=== PATIENT | male | born 1970 ===

== ENCOUNTER 2016-10-22 16:24 | Emergency (ER) | payer OTHER ==
[2016-10-22 16:31] VITALS: BMI 29.0
[2016-10-22 16:35] VITALS: TEMP 98.8
--- NOTE | 2016-10-22 17:07 | ED PDOC ---
Arrival/HPI - General Chief Complaint: High Blood Pressure Time Seen by Provider: 10/22/16 16:44 Historian: Patient - History of Present Illness Narrative History of Present Illness (Text): 10/22/16 17:20 46-year-old male with a history of hypertension presents today with a 2 day history of headache. Patient states the past 2 days he has not taken his blood pressure medications. Patient states 2 days ago he was sitting on the couch watching TV and he developed a throbbing headache localized to the top of the head. Patient did not take any medications for pain at home. Patient states the headache has been throbbing and intermittent. He currently rates the headache has an 8 out of 10. Patient states he has had history of headache in the past. Patient denies blurred vision. Denies dizziness or weakness. He denies any focal weakness. He denies chest pain or shortness of breath. No abdominal pain. Patient was seen by his primary care physician today and sent in to the emergency room for evaluation of his elevated blood pressure. Time/Duration: Other (2days) Symptom Course: Intermittent Quality: Throbbing Severity Level: 8 Past Medical History - Provider Review Nursing Documentation Reviewed: Yes - Travel History Have you recently traveled outside [place] w/in the past 3 mons?: No - Infectious Disease Hx of Infectious Diseases: None - Tetanus Immunization Tetanus Immunization: Unknown - Cardiac Hx Cardiac Disorders: Yes Hx Hypertension: Yes - Pulmonary Hx Respiratory Disorders: No - Neurological Hx Neurological Disorder: No - HEENT Hx HEENT Disorder: No - Renal Hx Renal Disorder: No - Endocrine/Metabolic Hx Endocrine Disorders: No - Hematological/Oncological Hx Blood Disorders: No - Integumentary Hx Dermatological Disorder: No - Musculoskeletal/Rheumatological Hx Musculoskeletal Disorders: No - Gastrointestinal Hx Gastrointestinal Disorders: No - Genitourinary/Gynecological Hx Genitourinary Disorders: No - Psychiatric Hx Psychophysiologic Disorder: No Hx Substance Use: No - Surgical History Hx Orthopedic Surgery: Yes (BACK SX) - Anesthesia Hx Anesthesia: Yes Hx Anesthesia Reactions: No - Suicidal Assessment Feels Threatened In Home Enviroment: No Family/Social History - Physician Review Nursing Documentation Reviewed: Yes Family/Social History: Unknown Family HX Smoking Status: Current Some Days Smoker Hx Alcohol Use: Yes Frequency of alcohol use: Socially Hx Substance Use: No Hx Substance Use Treatment: No Allergies/Home Meds Allergies/Adverse Reactions: Allergies No Known Allergies Allergy (Verified 10/22/16 16:31) Home Medications: Home Meds Medication Instructions Recorded Confirmed Enalapril/Hydrochlorothiazide 1 each PO DAILY 10/22/16 10/22/16 [Enalapril-Hctz 5-12.5 mg Tab] Review of Systems - Review of Systems Constitutional: absent: Fatigue, Fevers Eyes: absent: Vision Changes, Photophobia, Eye Pain ENT: absent: Sinus Congestion Respiratory: absent: SOB, Cough Cardiovascular: absent: Chest Pain, Palpitations Gastrointestinal: absent: Abdominal Pain, Nausea, Vomiting Musculoskeletal: absent: Arthralgias, Back Pain, Neck Pain Neurological: Headache. absent: Dizziness, Focal Weakness, Gait Changes, Speech Changes, Disequilibrium Psychiatric: absent: Anxiety, Depression Physical Exam Vital Signs Reviewed: Yes Vital Signs Temp Pulse Resp BP Pulse Ox 10/22/16 20:06 60 18 140/92 H 99 10/22/16 18:48 63 18 144/85 97 10/22/16 18:08 62 18 157/110 H 96 10/22/16 17:20 189/119 H 10/22/16 16:33 98.8 F 70 19 236/148 H 99 Temperature: Afebrile Blood Pressure: Hypertensive (bp 189/119) Pulse: Regular Respiratory Rate: Normal Appearance: Positive for: Well-Appearing, Non-Toxic, Comfortable Pain Distress: None Mental Status: Positive for: Alert and Oriented X 3 - Systems Exam Head: Present: Atraumatic. No: Tenderness Pupils: Present: PERRL Extroacular Muscles: Present: EOMI Conjunctiva: Present: Normal Ears: Present: Normal Mouth: Present: Moist Mucous Membranes Neck: Present: Normal Range of Motion, Trachea Midline. No: Meningeal Signs, MIDLINE TENDERNESS, Paraspinal Tenderness Respiratory/Chest: Present: Clear to Auscultation, Good Air Exchange. No: Respiratory Distress, Accessory Muscle Use Cardiovascular: Present: Regular Rate and Rhythm, Normal S1, S2. No: Murmurs Abdomen: No: Tenderness, Distention Back: Present: Normal Inspection Upper Extremity: Present: Normal ROM Lower Extremity: Present: Normal Inspection. No: Edema Neurological: Present: GCS=15, Speech Normal Skin: Present: Warm, Dry, Normal Color. No: Rashes Psychiatric: Present: Alert, Oriented x 3 Medical Decision Making ED Course and Treatment: 10/22/16 17:22 46yr old male with 2 day hx of headache; sent in by PMD. Patient's blood pressure is 189/119 elevated bp in er; has hx of htn did not take medications for 2 days. pt non toxic well appearing; no distress. case discussed with attending of record. 0.1mg of clonidine given by mouth cbc: wnl cmp WNl trop: 0.03 ekg; sinus rhythm at 62 bpm normal axis normal intervals no ST elevations chest x-ray: No infiltrate and no effusion CT of the head: FINDINGS: HEMORRHAGE: No intracranial hemorrhage. BRAIN: No mass effect or edema. Intracranial atherosclerotic calcifications. Mild scattered white matter hypodensities, which are nonspecific, but often seen with chronic microvascular ischemic disease. Please note that MRI with diffusion imaging is more sensitive in the detection of acute ischemic event. VENTRICLES: No hydrocephalus. Cavum septum pellucidum, anatomic variant. CALVARIUM: Unremarkable. PARANASAL SINUSES: Scattered mucosal thickening of the ethmoid air cells. Remainder the visualized paranasal sinuses appear clear. No air-fluid levels. MASTOID AIR CELLS: Opacification/fluid involving bilateral mastoid air cells, right greater than left ; correlate clinically for mastoiditis. OTHER FINDINGS: Opacification bilateral external auditory canals, likely cerumen. IMPRESSION: Mild scattered nonspecific white matter changes. Opacification/fluid involving bilateral mastoid air cells, right greater than left ; correlate clinically for mastoiditis. Scattered mucosal thickening of the ethmoid air cells. 10/22/16 20:37 after clonidine pts headache has completely resolved; and blood pressure has improved greatly; i discussed all results in depth with patient; pt denies any ear pain. denies fever/chills. there is NO mastoid tenderness or erythema. Discussed the CAT scan findings of bilateral mastoid air cell opacification and fluid. As there is no mastoid tenderness or erythema and the patient denies any ear pain. I will discharge the patient home with by mouth antibiotics and have the patient follow up with the ENT specialist. Patient states he will not get his blood pressure medications delivered to him for the next 5 days. I will give the patient a prescription of his hydrochlorothiazide and his atenolol and his atorvastatin. I've advised the patient to follow up with a primary care physician tomorrow for which he states that he will. I've advised immediately return if symptoms worsen persist or if new concerning symptoms develop All information was translated to the patient using a pediatric assistant electronic heat seal operator #[id number] Patient verbalizes understanding of discharge instructions and need for immediate followup. all aspects of this case were discussed the attending of record. impression; headache, HTN, take your blood pressure medications as prescribed increase fluids amoxicillin 3 times daily x 10 days follow up with the primary care physician tomorrow follow up with the ENT specialist within the next 2 days. Return immediately if symptoms worsen,persist or if new symptoms develop. - Lab Interpretations Lab Results: 10/22/16 16:45 10/22/16 16:45 Lab Results 10/22/16 16:45: WBC 8.3, RBC 4.48, Hgb 14.4, Hct 42.2, MCV 94.2, MCH 32.1, MCHC 34.1, RDW 12.9, Plt Count 271, MPV 10.8, Gran % 61.9, Lymph % (Auto) 27.9, [place] % (Auto) 4.4, Eos % (Auto) 5.4 H, Baso % (Auto) 0.4, Gran # 5.15, Lymph # 2.3, [place] # 0.4, Eos # 0.5, Baso # 0.03 10/22/16 16:45: Sodium 142, Potassium 4.0, Chloride 103, Carbon Dioxide 28, Anion Gap 15, BUN 12, Creatinine 0.9, Est GFR ( Amer) > 60, Est GFR (Non- Af Amer) > 60, Random Glucose 89, Calcium 9.6, Total Bilirubin 0.5, AST 25, ALT 43, Alkaline Phosphatase 72, Lactate Dehydrogenase 513, Total Creatine Kinase 156, Troponin I 0.03, Total Protein 7.9, Albumin 4.5, Globulin 3.3, Albumin/ Globulin Ratio 1.4 - RAD Interpretation Radiology Orders: 10/22/16 17:06 HEAD W/O CONTRAST [CT] Stat CHEST PORTABLE [RAD] Stat - Medication Orders Current Medication Orders: Discontinued Medications Acetaminophen (Tylenol 325mg Tab) 975 mg PO STAT STA Stop: 10/22/16 20:21 Last Admin: 10/22/16 20:30 Dose: 975 mg Clonidine HCl (Catapres) 0.1 mg PO STAT STA Stop: 10/22/16 17:11 Last Admin: 10/22/16 17:20 Dose: 0.1 mg Disposition/Present on Arrival - Present on Arrival Any Indicators Present on Arrival: No History of DVT/PE: No History of Uncontrolled Diabetes: No Urinary Catheter: No History of Decub. Ulcer: No History Surgical Site Infection Following: None - Disposition Have Diagnosis and Disposition been Completed?: Yes Diagnosis: Headache, Hypertension Disposition: HOME/ ROUTINE Disposition Time: 20:46 Patient Plan: Discharge Condition: GOOD Discharge Instructions (ExitCare): Hypertension (ED) Print Language: SAMI Additional Instructions: take your blood pressure medications as prescribed increase fluids amoxicillin 3 times daily x 10 days follow up with the primary care physician tomorrow follow up with the ENT specialist within the next 2 days. Return immediately if symptoms worsen,persist or if new symptoms develop Prescriptions: Amoxicillin 500 mg PO TID #30 tab Atenolol [Tenormin] 25 mg PO DAILY #5 Atorvastatin [Lipitor] 20 mg PO DAILY #5 hydroCHLOROthiazide [Hydrodiuril] 25 mg PO DAILY #5 tab Referrals: Daniel John [Primary Care Provider] - Follow up with primary Sage Mckeon MD [Staff Provider] - Follow up with primary Stanley Cyr DO [Staff Provider] - Follow up with primary Forms: WORK NOTE
[2016-10-22 17:16] LABS: ADD MANUAL DIFF? NO
[2016-10-22 17:30] LABS: BASO # 0.03 K/mm3 (0.0-2.0); BASO % 0.4 % (0.0-3.0); EOS # 0.5 (0.0-0.7); EOS % 5.4 % (1.5-5.0); GRAN # 5.15 (1.4-6.5); GRAN % 61.9 % (50.0-68.0); HEMATOCRIT 42.2 % (42.0-52.0); LYMPH # 2.3 (1.2-3.4); LYMPH % 27.9 % (22.0-35.0); MEAN CELL VOLUME 94.2 fL (80.0-105.0); MEAN CORPUSCULAR HEMOGLOBIN 32.1 pg (25.0-35.0); MEAN CORPUSCULAR HGB CONC 34.1 g/dl (31.0-37.0); MEAN PLATELET VOLUME 10.8 fl (7.0-11.0); MONO # 0.4 (0.1-0.6); MONO % 4.4 % (1.0-6.0); PLATELET COUNT 271 10^3/uL (120.0-450.0); RED CELL DISTRIBUTION WIDTH 12.9 % (11.5-14.5); WHITE BLOOD COUNT 8.3 10^3/ul (4.5-11.0)
--- NOTE | 2016-10-22 17:41 | CT ---
PROCEDURE: CT HEAD WITHOUT CONTRAST. HISTORY: headache COMPARISON: None available. TECHNIQUE: Axial computed tomography images were obtained through the head/brain without intravenous contrast. Radiation dose: Total exam DLP = 894.17 mGy-cm. This CT exam was performed using one or more of the following dose reduction techniques: Automated exposure control, adjustment of the mA and/or kV according to patient size, and/or use of iterative reconstruction technique. FINDINGS: HEMORRHAGE: No intracranial hemorrhage. BRAIN: No mass effect or edema. Intracranial atherosclerotic calcifications. Mild scattered white matter hypodensities, which are nonspecific, but often seen with chronic microvascular ischemic disease. Please note that MRI with diffusion imaging is more sensitive in the detection of acute ischemic event. VENTRICLES: No hydrocephalus. Cavum septum pellucidum, anatomic variant. CALVARIUM: Unremarkable. PARANASAL SINUSES: Scattered mucosal thickening of the ethmoid air cells. Remainder the visualized paranasal sinuses appear clear. No air-fluid levels. MASTOID AIR CELLS: Opacification/fluid involving bilateral mastoid air cells, right greater than left ; correlate clinically for mastoiditis. OTHER FINDINGS: Opacification bilateral external auditory canals, likely cerumen. IMPRESSION: Mild scattered nonspecific white matter changes. Opacification/fluid involving bilateral mastoid air cells, right greater than left ; correlate clinically for mastoiditis. Scattered mucosal thickening of the ethmoid air cells.
[2016-10-22 17:42] LABS: ALB/GLOB RATIO 1.4 (1.1-1.8); ALKALINE PHOSPHATASE 72 U/L (38-133); ALT/SGPT 43 U/L (7-56); AST/SGOT 25 U/L (15-59); BILIRUBIN,TOTAL 0.5 mg/dL (0.2-1.3); BLOOD UREA NITROGEN 12 mg/dL (7-21); CALCIUM 9.6 mg/dL (8.4-10.5); CARBON DIOXIDE 28 mmol/L (21-33); CHLORIDE 103 mmol/L (98-107); GFR AFRICAN-AMERICAN > 60; GLUCOSE,RANDOM 89 mg/dL (70-110); SODIUM 142 mmol/L (132-148); TOTAL PROTEIN 7.9 g/dL (5.8-8.3)
[2016-10-22 17:51] LABS: TROPONIN I 0.03 ng/mL
[2016-10-22 18:08] VITALS: RESP 18
--- NOTE | 2016-10-22 18:44 | RAD ---
HISTORY: headache/htn COMPARISON: No prior. FINDINGS: LUNGS: No active pulmonary disease. PLEURA: No significant pleural effusion identified, no pneumothorax apparent. CARDIOVASCULAR: Heart appears upper limits of normal/ borderline enlarged OSSEOUS STRUCTURES: No significant abnormalities. VISUALIZED UPPER ABDOMEN: Normal. OTHER FINDINGS: None. IMPRESSION: No focal consolidation
[2016-10-22 20:07] VITALS: BP 140/92; PULSE 60; O2SAT 99
--- NOTE | 2016-10-23 23:00 | CARD ---
APPROVED REPORT EKG Measurement Heart [id number] <Conclusion> Normal sinus rhythm Normal ECG
== END 2016-10-22 21:00 | disposition home or self-care (01) ==
LOC: ED 16:24
DX: I10 Essential (primary) hypertension (principal); R51 Headache

== ENCOUNTER 2018-03-24 13:59 | Emergency (ER) | payer OTHER ==
--- NOTE | 2018-03-24 14:15 | ED PDOC ---
Arrival/HPI - General Time Seen by Provider: 03/24/18 14:14 Historian: Patient - History of Present Illness Narrative History of Present Illness (Text): 03/24/18 14:15 48 y/o male, pmh including htn/hld, nkda, c/o rt. shoulder pain with stiffness x 2 weeks. 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 shoulder movement, no numbness or tingling, no leg or extremity swelling, no deformity, no palpitation, no rash, no night sweat, no dizziness, no other medical or psychological complaints. Past Medical History - Provider Review Nursing Documentation Reviewed: Yes - Infectious Disease Hx of Infectious Diseases: None - Tetanus Immunization Tetanus Immunization: Unknown - Cardiac Hx Cardiac Disorders: Yes Hx Hypertension: Yes - Pulmonary Hx Respiratory Disorders: No - Neurological Hx Neurological Disorder: No - HEENT Hx HEENT Disorder: No - Renal Hx Renal Disorder: No - Endocrine/Metabolic Hx Endocrine Disorders: No - Hematological/Oncological Hx Blood Disorders: No - Integumentary Hx Dermatological Disorder: No - Musculoskeletal/Rheumatological Hx Musculoskeletal Disorders: No - Gastrointestinal Hx Gastrointestinal Disorders: No - Genitourinary/Gynecological Hx Genitourinary Disorders: No - Psychiatric Hx Psychophysiologic Disorder: No Hx Substance Use: No - Surgical History Hx Orthopedic Surgery: Yes (BACK SX) - Anesthesia Hx Anesthesia: Yes Hx Anesthesia Reactions: No - Suicidal Assessment Feels Threatened In Home Enviroment: No Family/Social History - Physician Review Nursing Documentation Reviewed: Yes Family/Social History: Unknown Family HX Smoking Status: Current Some Days Smoker Hx Alcohol Use: Yes Hx Substance Use: No Hx Substance Use Treatment: No Allergies/Home Meds Allergies/Adverse Reactions: Allergies No Known Allergies Allergy (Verified 10/22/16 16:31) Home Medications: Home Meds Medication Instructions Recorded Confirmed Enalapril/Hydrochlorothiazide 1 each PO DAILY 10/22/16 10/22/16 [Enalapril-Hctz 5-12.5 mg Tab] Review of Systems - Review of Systems Constitutional: absent: Fatigue, Fevers Eyes: absent: Vision Changes ENT: absent: Hearing Changes Respiratory: absent: SOB, Cough Cardiovascular: absent: Chest Pain Gastrointestinal: absent: Abdominal Pain, Nausea, Vomiting Musculoskeletal: Arthralgias, Joint Swelling. absent: Back Pain, Neck Pain, Myalgias Skin: absent: Rash, Pruritis, Skin Lesions Neurological: absent: Headache, Dizziness Psychiatric: absent: Anxiety, Depression, Suicidal Ideation Physical Exam - Systems Exam Head: Present: Atraumatic, Normocephalic Pupils: Present: PERRL Extroacular Muscles: Present: EOMI Conjunctiva: Present: Normal Mouth: Present: Moist Mucous Membranes Neck: Present: Normal Range of Motion Respiratory/Chest: Present: Clear to Auscultation, Good Air Exchange. No: Respiratory Distress, Accessory Muscle Use Cardiovascular: Present: Regular Rate and Rhythm, Normal S1, S2. No: Murmurs Abdomen: No: Tenderness, Distention, Peritoneal Signs Back: Present: Normal Inspection Upper Extremity: Present: Normal Inspection, Other (Rt. shoulder: +ttp on the anterior shoulder joint lint, no swelling, no skin discoloration, painful active rt. shoulder movement, sensation intact, motor 5/5, +radial pulse, capillary refill< 2 seconds, neurovasular intact. ). No: Cyanosis, Edema Lower Extremity: Present: Normal Inspection. No: Edema Neurological: Present: GCS=15, CN II-XII Intact, Speech Normal Skin: Present: Warm, Dry, Normal Color. No: Rashes Psychiatric: Present: Alert, Oriented x 3, Normal Insight, Normal Concentration Medical Decision Making ED Course and Treatment: 03/24/18 14:31 -rt. shoulder xray -RUE venuous doppler -Toradol IM/percocet and lidoderm -Observe and reassess 03/24/18 17:40 -Clonidine 0.2mg po ordered, BP still elevated. -Pt. feels much better now on the rt. shoulder and able to have rt. shoulder movement. 03/24/18 17:50 -RUE Venuous doppler: as per preliminary report, no acute DVT -Rt. shoulder xray:There are some faint calcifications in the rotator cuff consistent with calcific tendinitis -All xray result explained to the patient, sling, outpatient orthopedic and physical therapy follow up. -I checked the [facility] report, there is no visible signs of drug abuse. -Discharge home with naproxen, percocet, lidoderm patch, sling, heat compression, follow up with your own pmd and orthopedic surgeon along with physical therapy within 2 days, return to the ER for any new or worsening signs or symptoms. - RAD Interpretation Radiology Orders: Rt. shoulder xray: Date of service: 03/24/2018 PROCEDURE: Radiographs of the Right Shoulder HISTORY: rt. shoulder pain and stiffness COMPARISON: No prior. FINDINGS: BONES: Normal. No fracture. JOINTS: Normal. Glenohumeral and acromioclavicular joints preserved. No osteoarthritis. SOFT TISSUES: There are some faint calcifications in the rotator cuff consistent with calcific tendinitis OTHER FINDINGS: None. IMPRESSION: There are some faint calcifications in the rotator cuff consistent with calcific tendinitis RUE venuous doppler: as per preliminary report, no acute DVT Molecular Modeler: Radiologist - PA / STONE ROUGHER / Resident Statement / has reviewed & agrees with the documentation as recorded. Disposition/Present on Arrival - Present on Arrival Any Indicators Present on Arrival: No History of DVT/PE: No History of Uncontrolled Diabetes: No Urinary Catheter: No History of Decub. Ulcer: No History Surgical Site Infection Following: None - Disposition Have Diagnosis and Disposition been Completed?: Yes Diagnosis: Calcific tendinitis of right shoulder Disposition: HOME/ ROUTINE Disposition Time: 15:45 Patient Plan: Discharge Patient Problems: Current Active Problems Problem Status Onset Calcific tendinitis of right shoulder Acute Condition: IMPROVED Additional Instructions: -Discharge home with naproxen, percocet, lidoderm patch, sling, heat compression, follow up with your own pmd and orthopedic surgeon along with physical therapy within 2 days, return to the ER for any new or worsening signs or symptoms. Prescriptions: Lidocaine 5% [Lidoderm] 1 patch TOP DAILY PRN #14 patch PRN Reason: Other Naproxen 500 mg PO BID PRN #20 tablet PRN Reason: Other oxyCODONE/Acetaminophen [Percocet 5/325 mg Tab] 1 tab PO QID PRN #12 tab PRN Reason: Other Referrals: Daniel John [Primary Care Provider] - Follow up with primary Hattie Arenas MD [Staff Provider] - Follow up with primary Forms: WORK NOTE
[2018-03-24] MEDS ORDERED: Oxycodone/Acetaminophen 5/325 mg Tab PO STA (15:04)
[2018-03-24] MEDS ORDERED: Lidocaine 5% Patch TD STA (15:04)
[2018-03-24 15:16] VITALS: RESP 18; TEMP 98.3; BMI 21.7
--- NOTE | 2018-03-24 15:48 | RAD ---
Date of service: 03/24/2018 PROCEDURE: Radiographs of the Right Shoulder HISTORY: rt. shoulder pain and stiffness COMPARISON: No prior. FINDINGS: BONES: Normal. No fracture. JOINTS: Normal. Glenohumeral and acromioclavicular joints preserved. No osteoarthritis. SOFT TISSUES: There are some faint calcifications in the rotator cuff consistent with calcific tendinitis OTHER FINDINGS: None. IMPRESSION: There are some faint calcifications in the rotator cuff consistent with calcific tendinitis
[2018-03-24 18:47] VITALS: O2SAT 98
[2018-03-24 19:32] VITALS: BP 156/92; PULSE 62
--- NOTE | 2018-03-24 19:48 | US ---
PROCEDURE: Right upper extremity venous US CLINICAL HISTORY: Arm pain and swelling Evaluate for deep venous thrombosis. PHYSICIAN(S): Darrel Marie M.D FINDINGS: The visualized rightinternal jugular vein is sonographically normal and compressible. No evidence of obstruction or thrombus is seen. The visualized segments of the right subclavian vein are patent with normal waveforms. No sonographic evidence of obstruction or thrombosis is seen. The visualized deep venous system of the proximal right upper extremity is sonographically normal and compressible. IMPRESSION: 1. No sonographic evidence for deep venous thrombosis in the visualized segments of the right upper extremity.
== END 2018-03-24 19:40 | disposition home or self-care (01) ==
LOC: ED 13:59
DX: M75.31 Calcific tendinitis of right shoulder (principal)
CPT/HCPCS: 29240; 73030; 93971; 96372; 99284; J1885

== ENCOUNTER 2018-08-04 08:20 | Observation (INO) | payer OTHER ==
--- NOTE | 2018-08-04 08:58 | ED PDOC ---
Arrival/HPI <Dani Rushing - Last Filed: 08/04/18 09:39> - General Historian: Patient - History of Present Illness Narrative History of Present Illness (Text): 08/04/18 09:03 48M w/ a PMH of HTN, HLD presented to [facility] ED on 08/04 w/ c/o CP x2-3 days; Patient reported that chest pain is located on the left side of chest began 2-3 days ago w/ no associated radiation into left arm / neck; no palpitations. Reports associated shortness of breath w/ CP however reports pain actually limits his breathing. Pain is reported as a pulling sensation - non pressure like. He does report exertion exacerbates his CP. Denies any associated N/V. Patient did report 2 days ago he had a fall where he reports losing his balance w/ associated LOC x 15-20 sec. Denied any associated focal neurologic deficit w/ fall. Did report trauma to his LUE. 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 [phone]: Last Echo 12/2017 - LVEF 57% ; mildly dilated aortic root; LVH; No wall motion abnl; mild abnl Exercise Stress Test 12/2017 - Submaximal work load; negative test; appropriate BP response Previous Cath 2009 - Unable to obtain record Time/Duration: Prior to Arrival Symptom Onset: Sudden Symptom Course: Unchanged Severity Level: Moderate Activities at Onset: Rest <Eric Boyd - Last Filed: 08/04/18 11:47> - General Chief Complaint: Chest Pain Time Seen by Provider: 08/04/18 08:26 Past Medical History - Provider Review Nursing Documentation Reviewed: Yes - Infectious Disease Hx of Infectious Diseases: None - Tetanus Immunization Tetanus Immunization: Unknown - Cardiac Hx Cardiac Disorders: Yes Hx Hyperlipemia: Yes Hx Hypertension: Yes - Pulmonary Hx Respiratory Disorders: No - Neurological Hx Neurological Disorder: No - HEENT Hx HEENT Disorder: No - Renal Hx Renal Disorder: No - Endocrine/Metabolic Hx Endocrine Disorders: No - Hematological/Oncological Hx Blood Disorders: No - Integumentary Hx Dermatological Disorder: No - Musculoskeletal/Rheumatological Hx Musculoskeletal Disorders: No - Gastrointestinal Hx Gastrointestinal Disorders: No - Genitourinary/Gynecological Hx Genitourinary Disorders: No - Psychiatric Hx Psychophysiologic Disorder: No Hx Substance Use: No - Surgical History Hx Orthopedic Surgery: Yes (BACK SX) - Anesthesia Hx Anesthesia: Yes Hx Anesthesia Reactions: No - Suicidal Assessment Feels Threatened In Home Enviroment: No <Eric Boyd - Last Filed: 08/04/18 11:47> Family/Social History Family/Social History: No Known Family HX Smoking Status: Current Some Days Smoker Hx Alcohol Use: Yes Frequency of alcohol use: Socially Hx Substance Use: No Hx Substance Use Treatment: No <Eric Boyd - Last Filed: 08/04/18 11:47> Allergies/Home Meds <Dani Rushing - Last Filed: 08/04/18 09:39> <Eric Boyd - Last Filed: 08/04/18 11:47> Allergies/Adverse Reactions: Allergies No Known Allergies Allergy (Verified 10/22/16 16:31) Home Medications: Home Meds Medication Instructions Recorded Confirmed Enalapril/Hydrochlorothiazide 1 each PO DAILY 10/22/16 10/22/16 [Enalapril-Hctz 5-12.5 mg Tab] Review of Systems - Physician Review All systems were reviewed & negative as marked: Yes - Review of Systems Constitutional: Normal Eyes: Normal. absent: Vision Changes ENT: Normal Respiratory: SOB Cardiovascular: Chest Pain, Syncope Gastrointestinal: Normal Genitourinary Male: Normal Musculoskeletal: Normal Skin: Normal Neurological: Headache Endocrine: Normal Hemo/Lymphatic: Normal Psychiatric: Normal <Eric Boyd - Last Filed: 08/04/18 11:47> Physical Exam Vital Signs Temp Pulse Resp BP Pulse Ox 08/04/18 09:33 60 171/123 H 08/04/18 08:30 98.3 F 70 18 204/126 H 96 <Dani Rushing - Last Filed: 08/04/18 09:39> Vital Signs Reviewed: Yes Vital Signs Temp Pulse Resp BP Pulse Ox 08/04/18 08:30 98.3 F 70 18 204/126 H 96 Temperature: Afebrile Blood Pressure: Hypertensive Pulse: Regular Appearance: Positive for: Well-Appearing, Non-Toxic Mental Status: Positive for: Alert and Oriented X 3 - Systems Exam Head: Present: Atraumatic, Normocephalic Pupils: Present: PERRL Extroacular Muscles: Present: EOMI Respiratory/Chest: Present: Clear to Auscultation, Good Air Exchange Cardiovascular: Present: Normal S1, S2 Abdomen: Present: Tenderness. No: Distention Upper Extremity: Present: Normal Inspection Lower Extremity: Present: Normal Inspection, NORMAL PULSES, Capillary Refill < 2 s Neurological: Present: GCS=15, CN II-XII Intact Skin: Present: Warm, Dry Psychiatric: Present: Alert, Oriented x 3 <Eric Boyd - Last Filed: 08/04/18 11:47> Medical Decision Making ED Course and Treatment: 08/04/18 09:39 48 year old male presents to the ED for evaluation of left sided chest pain. In agreement with resident note which contains more details about the patient. Patient seen and evaluated with resident. Came up with plan and treatment together. - Lab Interpretations Lab Results: Total Bilirubin 0.5 mg/dL (0.2-1.3) 08/04/18 09:00 AST 27 U/L (17-59) 08/04/18 09:00 ALT 24 U/L (7-56) 08/04/18 09:00 Alkaline Phosphatase 84 U/L (38-126) 08/04/18 09:00 Total Protein 7.2 g/dL (5.8-8.3) 08/04/18 09:00 Albumin 4.2 g/dL (3.0-4.8) 08/04/18 09:00 Globulin 3.0 gm/dL 08/04/18 09:00 Albumin/Globulin Ratio 1.4 (1.1-1.8) 08/04/18 09:00 - RAD Interpretation Radiology Orders: 08/04/18 09:01 CHEST PORTABLE [RAD] Stat - Medication Orders Current Medication Orders: Discontinued Medications Atenolol (Tenormin) 25 mg PO STAT STA Stop: 08/04/18 09:10 Last Admin: 08/04/18 09:33 Dose: 25 mg [facility] Pulse and Blood Pressure Document 08/04/18 09:33 [facility] (Rec: 08/04/18 09:33 [id number]) Pulse Pulse Rate (60-90) 60 Blood Pressure Blood Pressure (100/60-150/90) 171/123 <Dani Rushing - Last Filed: 08/04/18 09:39> ED Course and Treatment: 08/04/18 09:22 Chest Pain - Anginal vs Musculoskeletal however given significant PMH + Social Risk factors + Associated syncopal episode - will require inpt admission for ACS r/o EKG w/o ST/T wave changes Trop pending Hypertensive Urgency - Will resume home Rx 08/04/18 10:25 CXR wnl no fx, mediastinal widening, cardiomegaly, lung guzman clear no infiltrate Pressure improving however still significantly elevated Troponin Equivocal; Will require admission Admit to Obs for ACS r/o; HTN urgency Syncope workup 08/04/18 11:42 ASA 325 stat dose given Verbalized admission plan for observation w/ patient who agrees to admission at this time Patient is HD stable, hypertensive, NAD at this time - Dr. Rushing endorsed case to hospitalist - EKG Interpretation EKG Interpretation (Text): 08/04/18 10:26 EKG NSR, w/o ST/T wave changes <Eric Boyd - Last Filed: 08/04/18 11:47> - PA / CORRECTIONAL MAINTENANCE TECHNICIAN / Resident Statement MARK has reviewed & agrees with the documentation as recorded. MARK has examined the patient and agrees with the treatment plan. <Dani Rushing - Last Filed: 08/04/18 09:39> Disposition/Present on Arrival <Dani Rushing - Last Filed: 08/04/18 09:39> - Present on Arrival Any Indicators Present on Arrival: No History of DVT/PE: No History of Uncontrolled Diabetes: No Urinary Catheter: No History of Decub. Ulcer: No History Surgical Site Infection Following: None - Disposition Have Diagnosis and Disposition been Completed?: Yes Disposition Time: 10:29 Patient Plan: Admission <Eric Boyd - Last Filed: 08/04/18 11:47> - Disposition Diagnosis: Chest pain, Hypertensive urgency Disposition: HOSPITALIZED Patient Problems: Current Active Problems Problem Status Onset Chest pain Acute Hypertensive urgency Acute Syncope Acute Condition: FAIR Discharge Instructions (ExitCare): Chest Pain (ED), Syncope (ED) Forms: [employer] (Albanian)
[2018-08-04 09:16] LABS: BASO # 0.02 K/mm3 (0.0-2.0); BASO % 0.3 % (0.0-3.0); EOS # 0.3 (0.0-0.7); EOS % 3.3 % (1.5-5.0); HEMOGLOBIN 14.1 g/dL (14.0-18.0); LYMPH # 1.7 (1.2-3.4); LYMPH % 21.5 % (22.0-35.0); MEAN CELL VOLUME 96.3 fl (80.0-105.0); MEAN CORPUSCULAR HEMOGLOBIN 32.2 pg (25.0-35.0); MEAN CORPUSCULAR HGB CONC 33.4 g/dl (31.0-37.0); MEAN PLATELET VOLUME 10.3 fl (7.0-11.0); MONO # 0.3 (0.1-0.6); MONO % 4.3 % (1.0-6.0); RBC 4.38 10^6/uL (3.5-6.1); RED CELL DISTRIBUTION WIDTH 12.8 % (11.5-14.5); WHITE BLOOD COUNT 7.7 10^3/uL (4.5-11.0)
[2018-08-04 09:30] LABS: ALB/GLOB RATIO 1.4 (1.1-1.8); ALBUMIN 4.2 g/dL (3.0-4.8); ALT/SGPT 24 U/L (7-56); AST/SGOT 27 U/L (17-59); BLOOD UREA NITROGEN 17 mg/dL (7-21); CALCIUM 9.4 mg/dL (8.4-10.5); GFR NON-AFRICAN AMERICAN > 60; HDL CHOLESTEROL 52 mg/dL (29-60)
[2018-08-04 09:39] LABS: TROPONIN I 0.02 ng/mL
[2018-08-04 09:40] LABS: LDL CHOLESTEROL 55 mg/dL (0-129)
--- NOTE | 2018-08-04 12:33 | RAD ---
Date of service: 08/04/2018 HISTORY: Chest Pain COMPARISON: 10/22/2016 FINDINGS: LUNGS: No active pulmonary disease. PLEURA: No significant pleural effusion identified, no pneumothorax apparent. CARDIOVASCULAR: No aortic atherosclerotic calcification present. Normal cardiac size. No pulmonary vascular congestion. OSSEOUS STRUCTURES: No significant abnormalities. VISUALIZED UPPER ABDOMEN: Normal. OTHER FINDINGS: None. IMPRESSION: No active disease.
--- NOTE | 2018-08-04 15:30 | CP.PCM.HP ---
<Philippe Lewis - Last Filed: 08/04/18 15:19> History of Present Illness - History of Present Illness History of Present Illness: Internal Medicine History and Physical (Dr. Aldana's Service) CC: Chest Pain HPI: Mr. 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 Patient states that three days ago while at rest he began to experience a pulling type pain in his left chest with some reported radiation to his left arm. He states that the pain is intermittent and exertion makes his pain worse. He reports this pain as a 7/10 in intensity. He denies ever having this pain in the past and denies any alleviating factors. He also endorses some associated SOB, which is only experienced during his episodes of chest pain. Patient is observed resting comfortably in the ED without any complaints at this time. Further 12 point ROS reviewed and unremarkable at this time. Of note, patient was hypertensive in the ED on admission with SBP >200 and DBP >100. This was treated in the ED with Atenolol. PMH: As stated above PSH: Denies Family History: Denies Social History: Current smoker with ~10 year pack smoking history; Social alcohol consumption; Denies illicit drug use; Works for [employer] Allergies: NKDA Home Medications: Reviewed; As per [facility] PMD: Dr. 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 Present on Admission - Present on Admission Any Indicators Present on Admission: No Review of Systems - Review of Systems Review of Systems: As stated in HPI, otherwise negative Past Patient History - Infectious Disease Hx of Infectious Diseases: None - Tetanus Immunizations Tetanus Immunization: Unknown - Past Social History Smoking Status: Current Some Days Smoker - CARDIAC Hx Cardiac Disorders: Yes Hx Hypertension: Yes - PULMONARY Hx Respiratory Disorders: No - NEUROLOGICAL Hx Neurological Disorder: No - HEENT Hx HEENT Problems: No - RENAL Hx Chronic Kidney Disease: No - ENDOCRINE/METABOLIC Hx Endocrine Disorders: No - HEMATOLOGICAL/ONCOLOGICAL Hx Blood Disorders: No - INTEGUMENTARY Hx Dermatological Problems: No - MUSCULOSKELETAL/RHEUMATOLOGICAL Hx Musculoskeletal Disorders: No - GASTROINTESTINAL Hx Gastrointestinal Disorders: No - GENITOURINARY/GYNECOLOGICAL Hx Genitourinary Disorders: No - PSYCHIATRIC Hx Psychophysiologic Disorder: No Hx Substance Use: No - SURGICAL HISTORY Hx Orthopedic Surgery: Yes (BACK SX) - ANESTHESIA Hx Anesthesia: Yes Hx Anesthesia Reactions: No Meds Allergies/Adverse Reactions: Allergies Allergy/AdvReac Type Severity Reaction Status Date / Time No Known Allergies Allergy Verified 10/22/16 16:31 Physical Exam - Constitutional Appears: Non-toxic, No Acute Distress - Head Exam Head Exam: ATRAUMATIC, NORMOCEPHALIC - Eye Exam Eye Exam: EOMI, Normal appearance - ENT Exam ENT Exam: Mucous Membranes Moist - Neck Exam Neck exam: Positive for: Full Rom - Respiratory Exam Respiratory Exam: Clear to Auscultation Bilateral, NORMAL BREATHING PATTERN. absent: Accessory Muscle Use, Chest Wall Tenderness, Decreased Breath Sounds, Prolonged Expiratory Phase, Rales, Rhonchi, Wheezes, Respiratory Distress, Stridor - Cardiovascular Exam Cardiovascular Exam: REGULAR RHYTHM, RRR, +S1, +S2. absent: Bradycardia, Tachycardia, Clicks, Diastolic murmur, Gallop, Irregular Rhythm, JVD, Rubs, +S4, Systolic Murmur - GI/Abdominal Exam GI & Abdominal Exam: Normal Bowel Sounds, Soft. absent: Tenderness - Extremities Exam Extremities exam: Positive for: normal inspection - Neurological Exam Neurological exam: Alert, CN II-XII Intact, Oriented x3 - Psychiatric Exam Psychiatric exam: Normal Affect, Normal Mood - Skin Skin Exam: Dry, Intact, Normal Color, Warm Results - Vital Signs Recent Vital Signs: Last Vital Signs Temp 98.3 F 08/04/18 08:30 Pulse 57 L 08/04/18 15:05 Resp 18 08/04/18 15:05 BP 150/94 H 08/04/18 15:05 Pulse Ox 95 08/04/18 15:05 - Labs Result Diagrams: 08/04/18 09:00 08/04/18 09:00 Labs: Laboratory Results - last 24 hr 08/04/18 08/04/18 08/04/18 09:00 09:00 09:00 WBC 7.7 RBC 4.38 Hgb 14.1 Hct 42.2 MCV 96.3 MCH 32.2 MCHC 33.4 RDW 12.8 Plt Count 235 MPV 10.3 Neut % (Auto) 70.6 H Lymph % (Auto) 21.5 L [place] % (Auto) 4.3 Eos % (Auto) 3.3 Baso % (Auto) 0.3 Lymph # (Auto) 1.7 [place] # (Auto) 0.3 Eos # (Auto) 0.3 Baso # (Auto) 0.02 Absolute Neuts (auto) 5.43 Sodium 142 Potassium 4.1 Chloride 108 H Carbon Dioxide 28 Anion Gap 10 BUN 17 Creatinine 1.0 Est GFR ( Amer) > 60 Est GFR (Non-Af Amer) > 60 Random Glucose 98 Hemoglobin A1c 5.9 Calcium 9.4 Phosphorus 3.4 Magnesium 2.2 Total Bilirubin 0.5 AST 27 ALT 24 Alkaline Phosphatase 84 Troponin I 0.02 D Total Protein 7.2 Albumin 4.2 Globulin 3.0 Albumin/Globulin Ratio 1.4 Triglycerides 180 H Cholesterol 134 LDL Cholesterol Direct 55 HDL Cholesterol 52 TSH 3rd Generation 08/04/18 09:00 WBC RBC Hgb Hct MCV MCH MCHC RDW Plt Count MPV Neut % (Auto) Lymph % (Auto) [place] % (Auto) Eos % (Auto) Baso % (Auto) Lymph # (Auto) [place] # (Auto) Eos # (Auto) Baso # (Auto) Absolute Neuts (auto) Sodium Potassium Chloride Carbon Dioxide Anion Gap BUN Creatinine Est GFR ( Amer) Est GFR (Non-Af Amer) Random Glucose Hemoglobin A1c Calcium Phosphorus Magnesium Total Bilirubin AST ALT Alkaline Phosphatase Troponin I Total Protein Albumin Globulin Albumin/Globulin Ratio Triglycerides Cholesterol LDL Cholesterol Direct HDL Cholesterol TSH 3rd Generation 1.42 Assessment & Plan - Assessment and Plan (Free Text) Assessment: 48 year old male with a past medical history significant for HTN and HLD 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 Plan: 1. Chest Pain -Chest X-Ray showed no active disease -EKG showing NSR without signs of cardiac ischemia -2D echocardiogram pending -Initial troponin negative; Two serial troponins pending -UDS and D-dimer pending -Loaded with aspirin in ED -Start daily low dose ASA -Cardiology consulted, all recommendations appreciated 2. History of HTN -Norvasc 10mg PO daily -Cozaar 100mg PO daily -Vital signs Q6 3. History of HLD -Lipitor 20mg PO daily GI Prophylaxis: Protonix DVT Prophylaxis: Lovenox Diet: Heart Healthy Code Status: Full Code Patient seen and case discussed with attending, Dr. Aldana. Philippe Lewis PGY2 - Date & Time Date: 08/04/18 Time: 15:19 Decision To Admit - Pt Status Changed To: Hospital Disposition Of: Observation - . Bed Request Type: Remote Telemetry <Nicholas Aldana - Last Filed: 08/04/18 16:44> Results - Vital Signs Recent Vital Signs: Last Vital Signs Temp 98.3 F 08/04/18 08:30 Pulse 57 L 08/04/18 15:05 Resp 18 08/04/18 15:05 BP 150/94 H 08/04/18 15:05 Pulse Ox 95 08/04/18 15:05 - Labs Result Diagrams: 08/04/18 09:00 08/04/18 09:00 Labs: Laboratory Results - last 24 hr 08/04/18 08/04/18 08/04/18 09:00 09:00 09:00 WBC 7.7 RBC 4.38 Hgb 14.1 Hct 42.2 MCV 96.3 MCH 32.2 MCHC 33.4 RDW 12.8 Plt Count 235 MPV 10.3 Neut % (Auto) 70.6 H Lymph % (Auto) 21.5 L [place] % (Auto) 4.3 Eos % (Auto) 3.3 Baso % (Auto) 0.3 Lymph # (Auto) 1.7 [place] # (Auto) 0.3 Eos # (Auto) 0.3 Baso # (Auto) 0.02 Absolute Neuts (auto) 5.43 D-Dimer, Quantitative Sodium 142 Potassium 4.1 Chloride 108 H Carbon Dioxide 28 Anion Gap 10 BUN 17 Creatinine 1.0 Est GFR ( Amer) > 60 Est GFR (Non-Af Amer) > 60 Random Glucose 98 Hemoglobin A1c 5.9 Calcium 9.4 Phosphorus 3.4 Magnesium 2.2 Total Bilirubin 0.5 AST 27 ALT 24 Alkaline Phosphatase 84 Troponin I 0.02 D Total Protein 7.2 Albumin 4.2 Globulin 3.0 Albumin/Globulin Ratio 1.4 Triglycerides 180 H Cholesterol 134 LDL Cholesterol Direct 55 HDL Cholesterol 52 TSH 3rd Generation 08/04/18 08/04/18 08/04/18 09:00 15:12 15:13 WBC RBC Hgb Hct MCV MCH MCHC RDW Plt Count MPV Neut % (Auto) Lymph % (Auto) [place] % (Auto) Eos % (Auto) Baso % (Auto) Lymph # (Auto) [place] # (Auto) Eos # (Auto) Baso # (Auto) Absolute Neuts (auto) D-Dimer, Quantitative < 200 Sodium Potassium Chloride Carbon Dioxide Anion Gap BUN Creatinine Est GFR ( Amer) Est GFR (Non-Af Amer) Random Glucose Hemoglobin A1c Calcium Phosphorus Magnesium Total Bilirubin AST ALT Alkaline Phosphatase Troponin I 0.01 D Total Protein Albumin Globulin Albumin/Globulin Ratio Triglycerides Cholesterol LDL Cholesterol Direct HDL Cholesterol TSH 3rd Generation 1.42 Attending/Attestation - Attestation I have personally seen and examined this patient.: Yes I have fully participated in the care of the patient.: Yes I have reviewed all pertinent clinical information: Yes Notes (Text): 08/04/18 16:40 48 year old male with past medical history of CAD, hypertension and dyslipidemia who presents with complaint of left sided chest pain. Will obtain serial cardiac enzymes to rule out ACS. Cardiology evaluation is requested. Echocardiogram is ordered. Resume home medications for hypertension and dyslipidemia. Continue with aspirin. Nicholas Aldana MD Hospitalist.
--- NOTE | 2018-08-04 17:11 | CARD ---
APPROVED REPORT Date of service: 08/04/2018 EKG Measurement Heart [id number] <Conclusion> Normal sinus rhythm Possible Anterior infarct, age undetermined T wave abnormality, consider inferior ischemia Abnormal ECG
--- NOTE | 2018-08-04 19:29 | CON ---
DATE OF CONSULTATION: 08/04/2018 REASON FOR CONSULTATION: Chest pain. HISTORY OF PRESENT ILLNESS: The patient is a 48-year-old male who has a history of hypertension, presented because of chest pain which he has been experiencing for the past 3 days. The chest pain is nonradiating. The patient denies any palpitation or dizziness. The patient stated that he underwent cardiac catheterization few years ago and he did not require any intervention. PAST MEDICAL HISTORY: Hypertension. SOCIAL HISTORY: The patient is a smoker, occasional drinker. Denies drug abuse. MEDICATIONS: Cozaar 100 mg once a day, aspirin 81 mg once a day, Lipitor 20 mg once a day, Lovenox 30 mg subcutaneous once a day, Norvasc 10 mg once a day, Protonix 40 mg once a day. REVIEW OF SYSTEMS: No fever or chills. No nausea or vomiting. PHYSICAL EXAMINATION: GENERAL: The patient is a middle-aged male who does not appear to be in any distress. VITAL SIGNS: Initial blood pressure was 204/126, currently 153/97; heart rate 63; temperature 98.3; respirations 18. HEENT: Head normocephalic. CHEST: Clear. HEART: S1 and S2 regular. ABDOMEN: Soft. EXTREMITIES: No edema. LABORATORY DATA: Hemoglobin and hematocrit 14.1 and 42.2. White count and platelet count are within normal limits. SMA-7 is within normal limits except for chloride of 108. One set of troponin is 0.02. Triglycerides are 118. The rest of lipid profile is within normal limits. TSH level is within normal limits. EKG revealed normal sinus rhythm, nonspecific inferior T-wave changes, although the computer reading stated consider inferior ischemia. Chest x-ray was unremarkable. ASSESSMENT: 1. Chest pain, rule out myocardial infarction. 2. Uncontrolled hypertension. RECOMMENDATIONS: Continue Cozaar 100 mg daily, aspirin 81 mg once a day, Lipitor 20 mg once a day, Lovenox 40 g subcutaneously daily, Norvasc 10 mg once a day. I will administer one dose of 40 mg of intravenous Lasix now. Obtain urine drug screen, serum D-dimer and an echocardiograph study. Sage Mckeon MD
[2018-08-04 21:51] VITALS: BMI 25.8
[2018-08-04] MEDS ORDERED: Pneumococcal 23-Valent Vaccine IM ONE (21:52)
[2018-08-04] MEDS ORDERED: Influenza Vaccine 60 mcg/0.5 mL SYR (4YR UP) IM ONE (21:52)
[2018-08-05] MEDS: Pantoprazole 40 mg EC Tab PO SCH (06:25)
[2018-08-05 07:11] LABS: BASO # 0.01 K/mm3 (0.0-2.0); BASO % 0.2 % (0.0-3.0); EOS # 0.3 (0.0-0.7); EOS % 4.1 % (1.5-5.0); HEMOGLOBIN 14.2 g/dL (14.0-18.0); LYMPH # 1.6 (1.2-3.4); LYMPH % 26.7 % (22.0-35.0); MEAN CORPUSCULAR HEMOGLOBIN 31.3 pg (25.0-35.0); MEAN CORPUSCULAR HGB CONC 32.6 g/dl (31.0-37.0); MEAN PLATELET VOLUME 10.5 fl (7.0-11.0); MONO # 0.4 (0.1-0.6); MONO % 6.4 % (1.0-6.0); RBC 4.54 10^6/uL (3.5-6.1); RED CELL DISTRIBUTION WIDTH 12.8 % (11.5-14.5); WHITE BLOOD COUNT 6.1 10^3/uL (4.5-11.0)
[2018-08-05 07:29] LABS: ALB/GLOB RATIO 1.7 (1.1-1.8); ALBUMIN 4.2 g/dL (3.0-4.8); ALT/SGPT 28 U/L (7-56); AST/SGOT 28 U/L (17-59); BLOOD UREA NITROGEN 21 mg/dL (7-21); CALCIUM 9.5 mg/dL (8.4-10.5); GFR NON-AFRICAN AMERICAN > 60
[2018-08-05 09:13] LABS: BARBITURATES, UR NEGATIVE (NEGATIVE); BENZODIAZEPINES, UR NEGATIVE (NEGATIVE); OPIATES, UR NEGATIVE (NEGATIVE); PHENCYCLIDINE, UR NEGATIVE (NEGATIVE)
--- NOTE | 2018-08-05 09:14 | CP.PCM.PN ---
<Ashutosh Roberson - Last Filed: 08/05/18 18:07> Subjective - Date & Time of Evaluation Date of Evaluation: 08/05/18 Time of Evaluation: 09:14 - Subjective Subjective: PGY1 Medicine Progress Note for Dr. Aldana Patient seen and evaluated at bedside this morning. No acute events overnight. No new complaints. Patient otherwise denies chest pain, shortness of breath, headache, abdominal pain, nausea, vomiting, and/or diarrhea. Objective - Vital Signs/Intake and Output Vital Signs (last 24 hours): Temp Pulse Resp BP Pulse Ox 98.2 F 51 L 22 109/61 98 08/05/18 05:00 08/05/18 05:00 08/05/18 05:00 08/05/18 05:00 08/05/18 05:00 - Medications Medications: Current Medications Amlodipine Besylate (Norvasc) 10 mg PO DAILY [facility] Aspirin (Ecotrin) 81 mg PO DAILY [facility] Atorvastatin Calcium (Lipitor) 20 mg PO DIN [facility] Last Admin: 08/04/18 17:46 Dose: 20 mg Enoxaparin Sodium (Lovenox) 40 mg SC DAILY [facility]; Protocol Losartan Potassium (Cozaar) 100 mg PO DAILY [facility] Pantoprazole Sodium (Protonix Ec Tab) 40 mg PO 0600 [facility] Last Admin: 08/05/18 06:25 Dose: 40 mg - Labs Labs: 08/05/18 07:00 08/05/18 07:00 - Additional Findings Additional findings: - Constitutional Appears: Non-toxic, No Acute Distress - Head Exam Head Exam: ATRAUMATIC, NORMOCEPHALIC - Eye Exam Eye Exam: EOMI, Normal appearance - ENT Exam ENT Exam: Mucous Membranes Moist - Neck Exam Neck exam: Positive for: Full Rom - Respiratory Exam Respiratory Exam: Clear to Auscultation Bilateral, NORMAL BREATHING PATTERN. absent: Accessory Muscle Use, Chest Wall Tenderness, Decreased Breath Sounds, Prolonged Expiratory Phase, Rales, Rhonchi, Wheezes, Respiratory Distress, Stridor - Cardiovascular Exam Cardiovascular Exam: REGULAR RHYTHM, RRR, +S1, +S2. absent: Bradycardia, Tachycardia, Clicks, Diastolic murmur, Gallop, Irregular Rhythm, JVD, Rubs, +S4, Systolic Murmur - GI/Abdominal Exam GI & Abdominal Exam: Normal Bowel Sounds, Soft. absent: Tenderness - Extremities Exam Extremities exam: Positive for: normal inspection - Neurological Exam Neurological exam: Alert, CN II-XII Intact, Oriented x3 - Psychiatric Exam Psychiatric exam: Normal Affect, Normal Mood - Skin Skin Exam: Dry, Intact, Normal Color, Warm Assessment and Plan - Assessment and Plan (Free Text) Assessment: 48 year old male with a past medical history significant for HTN and HLD who presents with left sided chest pain that began approximately 72 hours [employer]. Plan: Chest Pain, ACS rule-out - Chest X-Ray showed no active disease - EKG showing NSR without signs of cardiac ischemia - 2D echocardiogram pending - Troponins negative x3 - UDS positive for cocaine - D-dimer within normal limits - Loaded with aspirin in ED - Start daily low dose ASA - Cardiology consulted, all recommendations appreciated History of HTN - Continue Norvasc 10mg PO daily - Continue Cozaar 100mg PO daily - Hydralazine 10mg PO once - Vital signs Q6 History of HLD - Continue Lipitor 20mg PO daily Substance Abuse - UDS positive for cocaine on admission - Patient advised complete cessation of all recreational drug use Prophylaxis - GI: Protonix - DVT: Lovenox - Diet: Heart Healthy - Code Status: Full Code Patient seen and case discussed with Dr. Jovan Roberson PGY1 <Nicholas Aldana - Last Filed: 08/05/18 18:48> Objective - Vital Signs/Intake and Output Vital Signs (last 24 hours): Temp Pulse Resp BP Pulse Ox 97.5 F L 56 L 15 135/94 H 94 L 08/05/18 15:48 08/05/18 18:22 08/05/18 18:22 08/05/18 17:22 08/05/18 15:48 - Medications Medications: Current Medications Amlodipine Besylate (Norvasc) 10 mg PO DAILY [facility] Last Admin: 08/05/18 11:28 Dose: 10 mg Aspirin (Ecotrin) 81 mg PO DAILY [facility] Last Admin: 08/05/18 11:29 Dose: 81 mg Atorvastatin Calcium (Lipitor) 20 mg PO DIN [facility] Last Admin: 08/05/18 17:13 Dose: 20 mg Enoxaparin Sodium (Lovenox) 40 mg SC DAILY [facility]; Protocol Last Admin: 08/05/18 11:31 Dose: 40 mg Isosorbide Mononitrate (Imdur Er) 30 mg PO DAILY [facility] Losartan Potassium (Cozaar) 100 mg PO DAILY [facility] Last Admin: 08/05/18 11:29 Dose: 100 mg Pantoprazole Sodium (Protonix Ec Tab) 40 mg PO 0600 [facility] Last Admin: 08/05/18 06:25 Dose: 40 mg - Labs Labs: 08/05/18 07:00 08/05/18 07:00 Attending/Attestation - Attestation I have personally seen and examined this patient.: Yes I have fully participated in the care of the patient.: Yes I have reviewed all pertinent clinical information, including history, physical exam and plan: Yes Notes (Text): 08/05/18 18:44 48 year old male with past medical history of CAD, hypertension and dyslipidemia who presented with complaint of left sided chest pain. Serial cardiac enzymes were negative and ACS was ruled out. Continue with aspirin and statin. Cardiology evaluation was appreciated who added imdur and ordered for echocardiogram which is still pending. UTox was positive for cocaine; patient was counselled on risks of continued substance abuse. Nicholas Aldana MD Hospitalist.
[2018-08-05] MEDS: Enoxaparin 40 mg Syringe SC SCH (11:31)
--- NOTE | 2018-08-05 12:10 | CARD ---
APPROVED REPORT Date of service: 08/05/2018 EKG Measurement Heart [id number] <Conclusion> Sinus bradycardia T wave abnormality, consider inferolateral ischemia Abnormal ECG
--- NOTE | 2018-08-05 16:07 | PN ---
DATE: 08/05/2018 SUBJECTIVE: The patient denies any chest pain at this time. No shortness of breath. No reported arrhythmia. PHYSICAL EXAMINATION: VITAL SIGNS: Blood pressure 109/61, heart rate 51, temperature 98.2, respirations 22. HEENT: Normocephalic. CHEST: Clear. HEART: S1 and S2, regular. ABDOMEN: Soft. EXTREMITIES: No edema. No calf tenderness. LABORATORY DATA: Hemoglobin, hematocrit, white count, and platelet count are within normal limits. Today's SMA-7 is entirely within normal limits. Three sets of troponins were 0.02, 0.01 and 0.01. Urine drug screen is positive for cocaine. D-dimer is less than 200. ASSESSMENT: 1. Chest pain, status post cocaine abuse. Consider coronary spasm. 2. Hypertriglyceridemia. 3. Hypertension. RECOMMENDATIONS: Continue Cozaar 100 mg once a day, aspirin 81 mg once a day, Lovenox 40 mg once a day, Norvasc 10 mg once a day. Start Imdur at 30 mg once a day. Repeat 12-lead EKG and obtain an echocardiogram. Sage Mckeon MD
[2018-08-06] MEDS: Pantoprazole 40 mg EC Tab PO SCH (05:32)
[2018-08-06 06:21] LABS: BASO # 0.01 K/mm3 (0.0-2.0); BASO % 0.1 % (0.0-3.0); EOS # 0.3 (0.0-0.7); EOS % 4.6 % (1.5-5.0); HEMOGLOBIN 13.7 g/dL (14.0-18.0); LYMPH # 2.2 (1.2-3.4); LYMPH % 33.1 % (22.0-35.0); MEAN CELL VOLUME 96.4 fl (80.0-105.0); MEAN CORPUSCULAR HGB CONC 32.2 g/dl (31.0-37.0); MEAN PLATELET VOLUME 10.4 fl (7.0-11.0); MONO # 0.3 (0.1-0.6); RBC 4.42 10^6/uL (3.5-6.1); RED CELL DISTRIBUTION WIDTH 12.6 % (11.5-14.5); WHITE BLOOD COUNT 6.8 10^3/uL (4.5-11.0)
[2018-08-06 06:57] VITALS: RESP 19; TEMP 98.1; O2SAT 98
[2018-08-06 07:33] LABS: ALB/GLOB RATIO 1.4 (1.1-1.8); ALBUMIN 4.1 g/dL (3.0-4.8); ALT/SGPT 21 U/L (7-56); AST/SGOT 29 U/L (17-59); BLOOD UREA NITROGEN 18 mg/dL (7-21); CALCIUM 9.2 mg/dL (8.4-10.5); GFR NON-AFRICAN AMERICAN > 60
--- NOTE | 2018-08-06 07:48 | CP.PCM.PN ---
Subjective - Date & Time of Evaluation Date of Evaluation: 08/06/18 Time of Evaluation: 07:48 Objective - Vital Signs/Intake and Output Vital Signs (last 24 hours): Temp Pulse Resp BP Pulse Ox 98.1 F 56 L 19 140/99 H 98 08/06/18 06:00 08/06/18 06:00 08/06/18 06:00 08/06/18 06:00 08/06/18 06:00 Intake and Output: 08/06/18 08/06/18 06:59 18:59 Intake Total 360 Balance 360 - Medications Medications: Current Medications Amlodipine Besylate (Norvasc) 10 mg PO DAILY [facility] Last Admin: 08/05/18 11:28 Dose: 10 mg Aspirin (Ecotrin) 81 mg PO DAILY [facility] Last Admin: 08/05/18 11:29 Dose: 81 mg Atorvastatin Calcium (Lipitor) 20 mg PO DIN [facility] Last Admin: 08/05/18 17:13 Dose: 20 mg Enoxaparin Sodium (Lovenox) 40 mg SC DAILY [facility]; Protocol Last Admin: 08/05/18 11:31 Dose: 40 mg Isosorbide Mononitrate (Imdur Er) 30 mg PO DAILY [facility] Losartan Potassium (Cozaar) 100 mg PO DAILY [facility] Last Admin: 08/05/18 11:29 Dose: 100 mg Pantoprazole Sodium (Protonix Ec Tab) 40 mg PO 0600 [facility] Last Admin: 08/06/18 05:32 Dose: 40 mg - Labs Labs: 08/06/18 05:30 08/06/18 05:30
[2018-08-06] MEDS: Enoxaparin 40 mg Syringe SC SCH (10:32)
[2018-08-06 10:37] VITALS: BP 144/99
[2018-08-06 10:47] VITALS: PULSE 62
--- NOTE | 2018-08-06 11:32 | CARD ---
APPROVED REPORT Date of service: 08/06/2018 EXAM: Two-dimensional and M-mode echocardiogram with Doppler and color Doppler. INDICATION Chest Pain 2D DIMENSIONS Left Atrium (2D)3.8 (1.6-4.0cm)IVSd1.7 (0.7-1.1cm) LVDd4.6 (3.9-5.9cm)PWd1.6 (0.7-1.1cm) LVDs3.4 (2.5-4.0cm)FS (%) 25.9 % LVEF (%)50.9 (>50%) M-Mode DIMENSIONS Aortic Root3.60 (2.2-3.7cm)Aortic Cusp Exc.2.10 (1.5-2.0cm) Aortic Valve AoV Peak Jfliydou119.0cm/Maddie Peak GR.8mmHg Mitral Valve E/A ratio0.0 TDI E/Lateral E'0.0E/Medial E'0.0 Tricuspid Valve TR Peak [id number] [id number] Peak Gr.16mmHg [id number] LEFT VENTRICLE The left ventricle is normal size. There is borderline concentric left ventricular hypertrophy. Left ventricle systolic function is borderline. There is normal LV segmental wall motion. Transmitral Doppler flow pattern is abnormal. RIGHT VENTRICLE The right ventricle is normal size. There is normal right ventricular wall thickness. The right ventricular systolic function is normal. ATRIA The left atrium size is normal. The right atrium size is normal. AORTIC VALVE The aortic valve is normal in structure. No aortic regurgitation is present. There is no aortic valvular stenosis. MITRAL VALVE The mitral valve is normal in structure. There is no mitral valve regurgitation noted. There is no mitral valve stenosis. TRICUSPID VALVE The tricuspid valve is normal in structure. There is trace tricuspid regurgitation. PULMONIC VALVE The pulmonary valve is normal in structure. There is no pulmonic valvular regurgitation. GREAT VESSELS The aortic root is normal in size. The IVC is normal in size and collapses >50% with inspiration. PERICARDIAL EFFUSION There is no pericardial effusion. <Conclusion> There is borderline concentric left ventricular hypertrophy. Left ventricle systolic function is borderline. There is normal LV segmental wall motion.
--- NOTE | 2018-08-06 14:28 | CP.PCM.DIS ---
<Ashutosh Roberson - Last Filed: 08/06/18 14:29> Provider - Provider Date of Admission: 08/04/18 10:58 Attending physician: Nicholas Aldana MD Primary care physician: Dr. 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 Referral Routine Comment: chest pain syncope Physician Instructions: Reason For Exam: assess Transition In Care/Readmission Reduction Routine Comment: mauri pain syncope Physician Instructions: Reason For Exam: assess 08/05/18 18:30 Transition In Care/Readmission Reduction Routine Comment: Physician Instructions: Reason For Exam: EVALUATION Time Spent in preparation of Discharge (in minutes): 45 Diagnosis - Discharge Diagnosis (1) Chest pain Status: Acute Priority: Medium (2) Hypertensive urgency Status: Acute Priority: Medium Hospital Course - Lab Results Lab Results: Most Recent Lab Values WBC 6.8 10^3/uL (4.5-11.0) 08/06/18 05:30 RBC 4.42 10^6/uL (3.5-6.1) 08/06/18 05:30 Hgb 13.7 g/dL (14.0-18.0) L 08/06/18 05:30 Hct 42.6 % (42.0-52.0) 08/06/18 05:30 MCV 96.4 fl (80.0-105.0) 08/06/18 05:30 MCH 31.0 pg (25.0-35.0) 08/06/18 05:30 MCHC 32.2 g/dl (31.0-37.0) 08/06/18 05:30 RDW 12.6 % (11.5-14.5) 08/06/18 05:30 Plt Count 226 10^3/uL (120.0-450.0) 08/06/18 05:30 MPV 10.4 fl (7.0-11.0) 08/06/18 05:30 Neut % (Auto) 58.2 % (50.0-68.0) 08/06/18 05:30 Lymph % (Auto) 33.1 % (22.0-35.0) 08/06/18 05:30 [place] % (Auto) 4.0 % (1.0-6.0) 08/06/18 05:30 Eos % (Auto) 4.6 % (1.5-5.0) 08/06/18 05:30 Baso % (Auto) 0.1 % (0.0-3.0) 08/06/18 05:30 Lymph # (Auto) 2.2 (1.2-3.4) 08/06/18 05:30 [place] # (Auto) 0.3 (0.1-0.6) 08/06/18 05:30 Eos # (Auto) 0.3 (0.0-0.7) 08/06/18 05:30 Baso # (Auto) 0.01 K/mm3 (0.0-2.0) 08/06/18 05:30 Absolute Neuts (auto) 3.93 (1.4-6.5) 08/06/18 05:30 D-Dimer, Quantitative < 200 ng/mlDDU (0-243) 08/04/18 15:12 Sodium 142 mmol/L (132-148) 08/06/18 05:30 Potassium 4.5 mmol/L (3.6-5.0) 08/06/18 05:30 Chloride 107 mmol/L (98-107) 08/06/18 05:30 Carbon Dioxide 31 mmol/L (21-33) 08/06/18 05:30 Anion Gap 8 (10-20) L 08/06/18 05:30 BUN 18 mg/dL (7-21) 08/06/18 05:30 Creatinine 1.1 mg/dl (0.8-1.5) 08/06/18 05:30 Est GFR ( Amer) > 60 08/06/18 05:30 Est GFR (Non-Af Amer) > 60 08/06/18 05:30 Random Glucose 102 mg/dL (70-110) 08/06/18 05:30 Hemoglobin A1c 5.9 % (4.2-6.5) 08/04/18 09:00 Calcium 9.2 mg/dL (8.4-10.5) 08/06/18 05:30 Phosphorus 4.0 mg/dL (2.5-4.5) 08/05/18 07:00 Magnesium 2.1 mg/dL (1.7-2.2) 08/05/18 07:00 Total Bilirubin 0.5 mg/dL (0.2-1.3) 08/06/18 05:30 AST 29 U/L (17-59) 08/06/18 05:30 ALT 21 U/L (7-56) 08/06/18 05:30 Alkaline Phosphatase 76 U/L (38-126) 08/06/18 05:30 Troponin I 0.01 ng/mL 08/04/18 20:47 Total Protein 6.9 g/dL (5.8-8.3) 08/06/18 05:30 Albumin 4.1 g/dL (3.0-4.8) 08/06/18 05:30 Globulin 2.8 gm/dL 08/06/18 05:30 Albumin/Globulin Ratio 1.4 (1.1-1.8) 08/06/18 05:30 Triglycerides 180 mg/dL (35-160) H 08/04/18 09:00 Cholesterol 134 mg/dL (130-200) 08/04/18 09:00 LDL Cholesterol Direct 55 mg/dL (0-129) 08/04/18 09:00 HDL Cholesterol 52 mg/dL (29-60) 08/04/18 09:00 TSH 3rd Generation 1.42 mIU/mL (0.46-4.68) 08/04/18 09:00 Urine Opiates Screen Negative (NEGATIVE) 08/05/18 08:37 Urine Methadone Screen Negative (NEGATIVE) 08/05/18 08:37 Ur Barbiturates Screen Negative (NEGATIVE) 08/05/18 08:37 Ur Phencyclidine Scrn Negative (NEGATIVE) 08/05/18 08:37 Ur Amphetamines Screen Negative (NEGATIVE) 08/05/18 08:37 U Benzodiazepines Scrn Negative (NEGATIVE) 08/05/18 08:37 U Oth Cocaine Metabols Positive (NEGATIVE) H 08/05/18 08:37 U Cannabinoids Screen Negative (NEGATIVE) 08/05/18 08:37 - Hospital Course Hospital Course: PGY1 Discharge Summary and Hospital Course for Dr. Aldana On Admission: Mr. 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 Patient stated that three days prior while at rest he began to experience a pulling type pain in his left chest with some reported radiation to his left arm. Patient stated that the pain is intermittent and exertion makes his pain worse. Patient reported this pain as a 7/10 in intensity. Patient denied ever having this pain in the past and denies any alleviating factors. Patient also endorsed some associated SOB, which is only experienced during his episodes of chest pain. Please see Patient's chart for complete summary and details. Patient was subsequently admitted for Chest Pain and ACS rule-out. On Admission UDS was found to be positive for cocaine. Patient was educated at length regarding complete cocaine cessation. Patient was continued on home medications for History of Hypertension, however Atenolol was held due to contraindication due to being cocaine + and since Patient's heart rate was ranging 45-60's bpm. Troponins were obtained and were negative x3; EKG was obtained and was significant for sinus bradycardia; negative for ST elevations. Cardiology (Dr. Kenny) was consulted and recommended ECHO. ECHO was obtained and revealed EF > 50% borderline concentric LVH, LV systolic function borderline. and Normal LV wall motion. Patient was started on Imdur as stated in discharge medications. (Please see report for complete detail.) On day of discharge, Patient denied pain, shortness of breath, and symptoms resolved. Patient was hemodynamically stable and medically optimized for discharge to home. Patient was provided with detailed instructions (both verbally and written in both French and in Thai) to the level of Patient's comprehension. Patient both understands and agrees to all discharge instructions. Please see instructions below. Discharge Instructions provided to Patient: Please follow-up with your Primary Care Provider (Dr. John) within 3-5 days of being discharged from the hospital Complete cessation of using cocaine and/or other recreational drugs is highly encouraged, as this behavior is extremely unhealthy and dangerous for your health Please take all your medications as prescribed EXCEPT the following: DISCONTINUE Atenolol (Tenormin) 25mg PO daily If your symptoms return, please go to your nearest emergency department immediately Discharge Medications: 1. Fabio 5-40mg 40mg PO daily 2. Aspirin 81mg PO daily 3. DISCONTINUE: Atenolol 4. Start: Imdur ER 30mg PO daily #14 * you received a prescription for 14 days. Please follow-up with your primary care provider (Dr. John) prior to running out of this medications. 5. Atrovastatin 20 mg PO daily 6. Hydrodiuril 25mg PO daily 1. Por favor, lisa un seguimiento con lopez proveedor de atencin primaria (Dr. John) dentro de los 3 a 5 wise de maxine sido dado de trae del hospital. 2. Se recomienda encarecidamente el cese total del uso de cocana y / u otras drogas recreativas, ya que darcy comportamiento es extremadamente poco saludable. 3. Por favor, tome todos alonso medicamentos segn lo prescrito EXCEPTO lo siguiente: DESCONTINUAR Atenolol (Tenormin) 25mg PO diario 4. Si alonso sntomas regresan, dirjase de inmediato al servicio de urgencias ms cercano. Medicamentos de trae: 1. Fabio 5-40 mg 40 mg tome 1 lengeta por boca todos los wise 2. Aspirina 81 mg tyra 1 ficha por va oral todos los wise 3. DISCONTINUAR: Atenolol. 4. Empire medicamento: Comience con Imdur ER 30mg [place] 1 ficha por va oral todos los wise (recibi loren receta por 14 wise. Por favor, consulte con lopez proveedor de atencin primaria (Dr. John) antes de que se le acaben estos medicamentos. 5. Atrovastatin 20 mg tyra 1 ficha por va oral todos los wise. 6. Hydrodiuril 25 mg. [place] 1 ficha por va oral todos los wise. Patient seen and case discussed in detail with Dr. Jovan Roberson PGY1 Discharge Exam - Additional Findings Additional findings: - Constitutional Appears: Non-toxic, No Acute Distress - Head Exam Head Exam: ATRAUMATIC, NORMOCEPHALIC - Eye Exam Eye Exam: EOMI, Normal appearance - ENT Exam ENT Exam: Mucous Membranes Moist - Neck Exam Neck exam: Positive for: Full Rom - Respiratory Exam Respiratory Exam: Clear to Auscultation Bilateral, NORMAL BREATHING PATTERN. absent: Accessory Muscle Use, Chest Wall Tenderness, Decreased Breath Sounds, Prolonged Expiratory Phase, Rales, Rhonchi, Wheezes, Respiratory Distress, Stridor - Cardiovascular Exam Cardiovascular Exam: REGULAR RHYTHM, RRR, +S1, +S2. absent: Bradycardia, Tachycardia, Clicks, Diastolic murmur, Gallop, Irregular Rhythm, JVD, Rubs, +S4, Systolic Murmur - GI/Abdominal Exam GI & Abdominal Exam: Normal Bowel Sounds, Soft. absent: Tenderness - Extremities Exam Extremities exam: Positive for: normal inspection - Neurological Exam Neurological exam: Alert, CN II-XII Intact, Oriented x3 - Psychiatric Exam Psychiatric exam: Normal Affect, Normal Mood - Skin Skin Exam: Dry, Intact, Normal Color, Warm Discharge Plan - Discharge Medications Prescriptions: Isosorbide Mononitrate ER [Imdur ER] 30 mg PO DAILY #14 tab - Follow Up Plan Condition: FAIR Disposition: HOME/ ROUTINE Instructions: Chest Pain, Chest Pain (DC), Influenza Virus Vaccine (Live/Attenuated) Additional Instructions: Please follow-up with your Primary Care Provider (Dr. John) within 3-5 days of being discharged from the hospital Complete cessation of using cocaine and/or other recreational drugs is highly encouraged, as this behavior is extremely unhealthy and dangerous Please take all your medications as prescribed EXCEPT the following: DISCONTINUE Atenolol (Tenormin) 25mg PO daily If your symptoms return, please go to your nearest emergency department immediately Discharge Medications: 1. Fabio 5-40mg 40mg take 1 tab each by mouth daily 2. Aspirin 81mg take 1 tab by mouth daily 3. DISCONTINUE: Atenolol 4. New medication: Start Imdur ER 30mg Take 1 tab by mouth daily (you received a prescription for 14 days. Please follow-up with your primary care provider (Dr. John) prior to running out of this medications. 5. Atrovastatin 20 mg take 1 tab by mouth daily 6. Hydrodiuril 25mg Take 1 tab by mouth daily 1. Por favor, lisa un seguimiento con lopez proveedor de atencin primaria (Dr. John) dentro de los 3 a 5 wise de maxine sido dado de trae del hospital. 2. Se recomienda encarecidamente el cese total del uso de cocana y / u otras drogas recreativas, ya que darcy comportamiento es extremadamente poco saludable. 3. Por favor, tome todos alonso medicamentos segn lo prescrito EXCEPTO lo siguiente: DESCONTINUAR Atenolol (Tenormin) 25mg PO diario 4. Si alonso sntomas regresan, dirjase de inmediato al servicio de urgencias ms cercano. Medicamentos de trae: 1. Fabio 5-40 mg 40 mg tome 1 lengeta por boca todos los wise 2. Aspirina 81 mg tyra 1 ficha por va oral todos los wise 3. DISCONTINUAR: Atenolol. 4. [place] medicamento: Comience con Imdur ER 30mg [place] 1 ficha por va oral todos los wise (recibi loren receta por 14 wise. Por favor, consulte con lopez proveedor de atencin primaria (Dr. John) antes de que se le acaben estos medicamentos. 5. Atrovastatin 20 mg tyra 1 ficha por va oral todos los wise. 6. Hydrodiuril 25 mg. [place] 1 ficha por va oral todos los wise. 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 Comment: chest pain syncope Physician Instructions: Reason For Exam: assess Transition In Care/Readmission Reduction Routine Comment: mauri pain syncope Physician Instructions: Reason For Exam: assess 08/05/18 18:30 Transition In Care/Readmission Reduction Routine Comment: Physician Instructions: Reason For Exam: EVALUATION Hospital Course - Lab Results Lab Results: Most Recent Lab Values WBC 6.8 10^3/uL (4.5-11.0) 08/06/18 05:30 RBC 4.42 10^6/uL (3.5-6.1) 08/06/18 05:30 Hgb 13.7 g/dL (14.0-18.0) L 08/06/18 05:30 Hct 42.6 % (42.0-52.0) 08/06/18 05:30 MCV 96.4 fl (80.0-105.0) 08/06/18 05:30 MCH 31.0 pg (25.0-35.0) 08/06/18 05:30 MCHC 32.2 g/dl (31.0-37.0) 08/06/18 05:30 RDW 12.6 % (11.5-14.5) 08/06/18 05:30 Plt Count 226 10^3/uL (120.0-450.0) 08/06/18 05:30 MPV 10.4 fl (7.0-11.0) 08/06/18 05:30 Neut % (Auto) 58.2 % (50.0-68.0) 08/06/18 05:30 Lymph % (Auto) 33.1 % (22.0-35.0) 08/06/18 05:30 [place] % (Auto) 4.0 % (1.0-6.0) 08/06/18 05:30 Eos % (Auto) 4.6 % (1.5-5.0) 08/06/18 05:30 Baso % (Auto) 0.1 % (0.0-3.0) 08/06/18 05:30 Lymph # (Auto) 2.2 (1.2-3.4) 08/06/18 05:30 [place] # (Auto) 0.3 (0.1-0.6) 08/06/18 05:30 Eos # (Auto) 0.3 (0.0-0.7) 08/06/18 05:30 Baso # (Auto) 0.01 K/mm3 (0.0-2.0) 08/06/18 05:30 Absolute Neuts (auto) 3.93 (1.4-6.5) 08/06/18 05:30 D-Dimer, Quantitative < 200 ng/mlDDU (0-243) 08/04/18 15:12 Sodium 142 mmol/L (132-148) 08/06/18 05:30 Potassium 4.5 mmol/L (3.6-5.0) 08/06/18 05:30 Chloride 107 mmol/L (98-107) 08/06/18 05:30 Carbon Dioxide 31 mmol/L (21-33) 08/06/18 05:30 Anion Gap 8 (10-20) L 08/06/18 05:30 BUN 18 mg/dL (7-21) 08/06/18 05:30 Creatinine 1.1 mg/dl (0.8-1.5) 08/06/18 05:30 Est GFR ( Amer) > 60 08/06/18 05:30 Est GFR (Non-Af Amer) > 60 08/06/18 05:30 Random Glucose 102 mg/dL (70-110) 08/06/18 05:30 Hemoglobin A1c 5.9 % (4.2-6.5) 08/04/18 09:00 Calcium 9.2 mg/dL (8.4-10.5) 08/06/18 05:30 Phosphorus 4.0 mg/dL (2.5-4.5) 08/05/18 07:00 Magnesium 2.1 mg/dL (1.7-2.2) 08/05/18 07:00 Total Bilirubin 0.5 mg/dL (0.2-1.3) 08/06/18 05:30 AST 29 U/L (17-59) 08/06/18 05:30 ALT 21 U/L (7-56) 08/06/18 05:30 Alkaline Phosphatase 76 U/L (38-126) 08/06/18 05:30 Troponin I 0.01 ng/mL 08/04/18 20:47 Total Protein 6.9 g/dL (5.8-8.3) 08/06/18 05:30 Albumin 4.1 g/dL (3.0-4.8) 08/06/18 05:30 Globulin 2.8 gm/dL 08/06/18 05:30 Albumin/Globulin Ratio 1.4 (1.1-1.8) 08/06/18 05:30 Triglycerides 180 mg/dL (35-160) H 08/04/18 09:00 Cholesterol 134 mg/dL (130-200) 08/04/18 09:00 LDL Cholesterol Direct 55 mg/dL (0-129) 08/04/18 09:00 HDL Cholesterol 52 mg/dL (29-60) 08/04/18 09:00 TSH 3rd Generation 1.42 mIU/mL (0.46-4.68) 08/04/18 09:00 Urine Opiates Screen Negative (NEGATIVE) 08/05/18 08:37 Urine Methadone Screen Negative (NEGATIVE) 08/05/18 08:37 Ur Barbiturates Screen Negative (NEGATIVE) 08/05/18 08:37 Ur Phencyclidine Scrn Negative (NEGATIVE) 08/05/18 08:37 Ur Amphetamines Screen Negative (NEGATIVE) 08/05/18 08:37 U Benzodiazepines Scrn Negative (NEGATIVE) 08/05/18 08:37 U Oth Cocaine Metabols Positive (NEGATIVE) H 08/05/18 08:37 U Cannabinoids Screen Negative (NEGATIVE) 08/05/18 08:37 Attending/Attestation - Attestation I have personally seen and examined this patient.: Yes I have fully participated in the care of the patient.: Yes I have reviewed all pertinent clinical information, including history, physical exam and plan: Yes Notes (Text): 08/06/18 16:47 48 year old male with past medical history of CAD, hypertension and dyslipidemia who presented with complaint of left sided chest pain. Serial cardiac enzymes were negative and ACS was ruled out. He was seen by cardiology and started on imdur. He is also on aspirin and statin. Echocardiogram was reviewed as above. UTox was positive for cocaine; patient was counselled on risks of continued substance abuse. Patient is discharged home to follow up with pmd. Counselled on risks of continued substance abuse. Nicholas Aldana MD Hospitalist.
[2018-08-06] MEDS ORDERED: Influenza Vaccine 60 mcg/0.5 mL SYR (4YR UP) IM ONE (14:39)
--- NOTE | 2018-08-06 19:10 | PN ---
DATE: 08/06/2018 SUBJECTIVE: The patient denies any chest pain or shortness breath. OBJECTIVE: VITAL SIGNS: Blood pressure 140/99, heart rate 56, temperature 98.1, and respirations 19. HEENT: Normocephalic. CHEST: Clear. HEART: Sounds regular. EXTREMITIES: No edema. LABORATORY DATA: Hemoglobin and hematocrit and 42.6, white count and platelet count are within normal limit. Today's SMA-7 is within normal limit except for anion gap of 8. Echocardiac study revealed borderline concentric LVH with borderline systolic function and normal segmental wall motion. ASSESSMENT: 1. Chest pain, myocardial infarction ruled out. 2. Uncontrolled hypertension. 3. Cocaine abuse. RECOMMENDATIONS: Continue Cozaar 100 mg once a day, aspirin 81 mg once a day, Imdur 30 mg once a day, Lipitor 20 mg once a day, and Norvasc 10 mg once a day. The patient was recommended to undergo stress test as an outpatient to be his primary physician and to abstain from feature cocaine abuse. Sage Mckeon MD
== END 2018-08-06 17:16 | disposition home or self-care (01) ==
LOC: ED 08:20 → ERH 10:58 → 3RNO 08-05 17:46
PROVIDERS: ADMIT Hospitalist; ATTEND Internal Medicine
DX: R07.9 Chest pain, unspecified (principal); F14.10 Cocaine abuse, uncomplicated; I16.0 Hypertensive urgency; R55 Syncope and collapse; I25.10 Atherosclerotic heart disease of native coronary artery without angina pectoris; I10 Essential (primary) hypertension; E78.5 Hyperlipidemia, unspecified; E78.1 Pure hyperglyceridemia; F17.210 Nicotine dependence, cigarettes, uncomplicated; Z23 Encounter for immunization
CPT/HCPCS: 36415; 71045; 80053; 80061; 80324; 80345; 80346; 80349; 80353; 80358; 80361; 83036; 83735; 83992; 84100; 84443; 84484; 85025; 85378; 90471; 90674; 93005; 93306; 96374; 99285; G0378; J1650; J1940